=== PATIENT | male | born 1995 | race African-American/Black ===

== ENCOUNTER 2021-02-06 00:30 | Emergency (ER) | payer BC, OTHER ==
[~2021-02-06] VITALS: Ht 188 cm; Wt 94.3 kg
[2021-02-06 05:00] VITALS: BP 146/87
[2021-02-06] MEDS ORDERED: IBUPROFEN 800 MG TAB PO ONE (06:00)
[2021-02-06] MEDS ORDERED: ACETAMINOPHEN 500 MG TAB PO ONE (06:00)
== END 2021-02-06 07:53 | disposition home or self-care (01) ==
LOC: ER 00:30
DX: S33.5XXA Sprain of ligaments of lumbar spine, initial encounter (principal); X58.XXXA Exposure to other specified factors, initial encounter; Y93.89 Activity, other specified; Y92.89 Other specified places as the place of occurrence of the external cause; Y99.8 Other external cause status
CPT/HCPCS: 72100